=== PATIENT | male | born 1985 | race Caucasian/White ===

== ENCOUNTER 2018-03-09 03:10 | Emergency (ER) | payer SELFPAY ==
--- NOTE | 2018-03-09 03:14 | EDPHY ---
H & P Time Seen by Provider: 03/09/18 03:13 HPI/ROS: HPI CHIEF COMPLAINT: Alcohol intoxication, forehead laceration, head injury HISTORY OF PRESENT ILLNESS: This patient very pleasant 32-year-old male, is otherwise healthy without any significant medical history does not take any daily medications he presents to the emergency room this evening by EMS after he staying at a local hotel in [place], he had multiple alcoholic beverages this evening he states approximately 7 drinks mainly liquor shots, he stood up and fell over a plastic chair and had his head strike a cast iron of in. This caused him to sustain a forehead laceration vertically oriented 4 cm in length. No LOC. Denies any other areas of injury. He presents emergency room, cooperative by EMS but highly intoxicated with alcohol. Denies any other is injury specifically denies chest pain or shortness of breath. Denies fever. Denies neck pain. Patient reports tetanus shot up-to-date. Past Medical History: Denies medical history Past Surgical History: Denies surgical history Social History: Alcohol this evening 7 drinks, denies illicit drugs or tobacco or marijuana. Family History: Noncontributory ROS REVIEW OF SYSTEMS: A comprehensive 10 point review of systems is otherwise negative aside from elements mentioned in the history of present illness. Exam Constitutional intoxicated with alcohol, smells of alcohol, slurring speech triage nursing summary reviewed, vital signs reviewed, awake/alert. Eyes normal conjunctivae and sclera, EOMI, PERRLA. HENT head/neck; midline vertically oriented 4 cm forehead laceration not very gaping but deep enough that needs stitches, no bony involvement, no arterial vomit, no midline cervical spine pain, no step-offs or crepitus, no neck pain moist mucus membranes, no epistaxis, neck supple/ no meningismus, no raccoon eyes. Respiratory clear to auscultation bilaterally, normal breath sounds, no respiratory distress, no wheezing. Cardiovascular rate normal, regular rhythm, no murmur, no edema, distal pulses normal. Gastrointestinal soft, non-tender, no rebound, no guarding, normal bowel sounds, no distension, no pulsatile mass. Genitourinary no CVA tenderness. Musculoskeletal no midline vertebral tenderness, full range of motion, no calf swelling, no tenderness of extremities, no meningismus, good pulses, neurovascularly intact. Skin pink, warm, & dry, no rash, skin atraumatic. Neurologic awake, alert and oriented x 3, AAOx3, moves all 4 extremities equally, motor intact, sensory intact, CN II-XII intact, normal cerebellar, normal vision, slurring his speech. Psychiatric normal mood/affect. Heme/Lymph/Immune no lymphadenopathy. Differential Diagnosis: Includes but is not limited to in a particular order acute alcohol intoxication, closed-head injury, intracranial bleed, skull fracture, subdural, epidural, traumatic subarachnoid, soft tissue injury, laceration Medical Decision Making: Plan for this patient CT scan head without contrast for trauma, and then laceration will need to be repaired. Re-evaluation: Laceration Repair Procedure: Verbal Consent was obtained, Under sterile conditions, The patient had lidocaine with epinephrine used approximately 5ccs to local anesthetize the Forehead 4CM vertical Laceration. The wound was copiously irrigated with sterile fluid, the wound was explored for foreign bodies there were none visualized, the wound was explored with a sterile glove to the base. There are no deep structures involved, including no arterial injury. FOUR 6.O PROLENE interrupted Sutures were placed in this patient's laceration. He had good close approximation of the wound edges. He Tolerated this well. CT head without contrast negative for acute traumatic injury no evidence of skull fracture or bleed called to me by Dr. Schwartz. Patient understands keep the wound, clean, dry and intact. Sutures removed in 7 days. Return emergency room if there is worsening symptoms questions or concerns. Source: Patient, EMS Constitutional: Initial Vital Signs Temperature (C) 36.7 C 03/09/18 03:15 Heart Rate 76 03/09/18 03:15 Respiratory Rate 16 03/09/18 03:15 Blood Pressure 125/67 H 03/09/18 03:15 O2 Sat (%) 97 03/09/18 03:15 O2 Delivery Mode Room Air Allergies/Adverse Reactions: No Known Allergies Allergy (Unverified 03/09/18 03:20) Home Medications: Medication Instructions Recorded NK [No Known Home Meds] 03/09/18 Departure - Departure Disposition: Home, Routine, Self-Care Clinical Impression: Laceration Alcohol intoxication Qualifiers: Complication of substance-induced condition: uncomplicated Qualified Code(s): F10.920 - Alcohol use, unspecified with intoxication, uncomplicated Forehead laceration Qualifiers: Encounter type: initial encounter Qualified Code(s): S01.81XA - Laceration without foreign body of other part of head, initial encounter Condition: Good Instructions: Care For Your Stitches (ED), Laceration (ED) Additional Instructions: 1. Your sutures need to be removed in 7 days. 2. Return to the emergency room to have her sutures removed her go to the closest emergency room urgent care that can remove sutures. 3. Return emergency room if develops worsening symptoms includes vomiting, severe headache questions or concerns about your sutures. 4. Keep your wound clean, dry, intact and protected. Referrals: Patient,NotPresent [Primary Care Provider] - As per Instructions
[2018-03-09] MEDS ORDERED: ACETAMINOPHEN 500 MG TAB PO ONE (04:03)
[2018-03-09 04:11] VITALS: BP 118/56
== END 2018-03-09 04:11 | disposition home or self-care (01) ==
PROC: 0HQ1XZZ Repair Face Skin, External Approach (ICD-10-PCS; principal; 2018-03-09)
DX: S01.81XA Laceration without foreign body of other part of head, initial encounter (principal); F10.920 Alcohol use, unspecified with intoxication, uncomplicated; W18.09XA Striking against other object with subsequent fall, initial encounter